=== PATIENT | male | born 1945 | race Caucasian/White ===

== ENCOUNTER 2018-12-17 10:36 | Emergency (ER) | payer OTHER ==
[~2018-12-17] VITALS: Ht 182.9 cm; Wt 81.7 kg
[2018-12-17] MEDS ORDERED: SENNA8.6 MG PO (11:36)
[2018-12-17] MEDS ORDERED: NORCO 10-325 T1 EACH PO (11:36)
[2018-12-17] MEDS ORDERED: MEDROLDOSEPACK PO (11:36)
[2018-12-17 11:38] VITALS: BP 145/95
== END 2018-12-17 12:29 | disposition home or self-care (01) ==
LOC: ER 10:36
DX: M54.42 Lumbago with sciatica, left side (principal); F17.210 Nicotine dependence, cigarettes, uncomplicated; Z88.5 Allergy status to narcotic agent; Z88.0 Allergy status to penicillin

== ENCOUNTER 2021-04-07 13:08 | Emergency (ER) | payer MEDICARE ==
[~2021-04-07] VITALS: Ht 180.3 cm; Wt 90.7 kg
[~2021-04-07 13:08] MED LIST: MEDROLDOSEPACK PO; NORCO 10-325 T1 EACH PO; SENNA8.6 MG PO
[2021-04-07 13:36] LABS: HEMATOCRIT 40.7 % (42.0-52.0); HEMOGLOBIN 13.9 gm/dL (14.0-18.0); MCH 32.8 pg (26.0-34.0); MCHC 34.1 g/dL (28.0-37.0); MCV 95.9 fL (80.0-100.0); RBC 4.24 mil/uL (4.50-6.00); RDW 13.8 % (10.5-14.5); WBC 8.5 thou/uL (4.0-11.0)
[2021-04-07 13:45] LABS: CREATININE 1.2 mg/dL (0.7-1.3); POTASSIUM 3.7 mmol/L (3.5-5.1)
[2021-04-07 13:55] LABS: ALBUMIN 3.7 g/dL (3.4-5.0); TOTAL BILIRUBIN 0.3 mg/dL (0.2-1.0); TOTAL PROTEIN 7.1 g/dL (6.4-8.2)
[2021-04-07 18:07] LABS: URINE BILIRUBIN NEGATIVE (Negative); URINE BLOOD NEGATIVE (Negative); URINE CLARITY CLEAR; URINE COLOR YELLOW; URINE GLUCOSE-RANDOM* NEGATIVE (Negative); URINE KETONES TRACE (Negative); URINE LEUKOCYTES-REFLEX NEGATIVE (Negative); URINE NITRITE-REFLEX NEGATIVE (Negative); URINE PROTEIN (DIPSTICK) NEGATIVE (Negative); URINE UROBILINOGEN 0.2 E.U./dl (0.2-1.0)
[2021-04-07 19:09] VITALS: BP 107/63
--- NOTE | 2021-04-08 07:59 | EKG ---
[address] [place] [address] ELECTROCARDIOGRAM REPORT Name: NANCYPOPPY Room #: [facility]Par[facility] [id number] Admission: 04/07/21 Attend Phys: Discharge: 04/07/21 Date of : 43 Report #: [id number] [facility] ED Test Date: 2021-04-07 Test Time: 13:20:55 Pat Name: POPPY CRUZ Department: Room: Gender: M [employer]: eliza : 1945 Requested By: Amirah Marino Order Number: [id number] MD: Osbaldo Blandon Measurements Intervals [place] Rate: 66 P: 41 [place]: 166 QRS: -27 QRSD: 99 T: 12 QT: 410 QTc: 430 Interpretive Statements Sinus rhythm Borderline left axis deviation Low voltage, precordial leads Compared to ECG 12/21/2005 21:15:29 Low QRS voltage now present Electronically Signed On 04-08-2021 7:58:55 [employer] by Osbaldo Blandon [email or web address] <ELECTRONICALLY SIGNED> By: Osbaldo Blandon MD, [facility] 04/08/21 [id number] 1320 1320 Osbaldo Blandon MD, FACC /EPI
== END 2021-04-07 18:58 | disposition home or self-care (01) ==
LOC: ER 13:08
PROVIDERS: Nurse Practitioner Family
DX: R55 Syncope and collapse (principal); R91.8 Other nonspecific abnormal finding of lung field; F17.210 Nicotine dependence, cigarettes, uncomplicated; Z88.6 Allergy status to analgesic agent; Z88.0 Allergy status to penicillin

== ENCOUNTER → 2021-05-12 | Outpatient (CLI) | payer OTHER | LOC: CAT 09:41 | PROVIDERS: ATTEND Family Medicine | DX: Z13.6 Encounter for screening for cardiovascular disorders (principal); I25.10 Atherosclerotic heart disease of native coronary artery without angina pectoris; E78.00 Pure hypercholesterolemia, unspecified ==

== ENCOUNTER → 2021-05-12 | Outpatient (CLI) | payer MEDICARE | LOC: CAT 09:53 → PET 09:57 | PROVIDERS: ATTEND Family Medicine | DX: J43.8 Other emphysema (principal); R91.8 Other nonspecific abnormal finding of lung field; I25.10 Atherosclerotic heart disease of native coronary artery without angina pectoris; M47.819 Spondylosis without myelopathy or radiculopathy, site unspecified; M48.00 Spinal stenosis, site unspecified ==